=== PATIENT | male | born 1965 | race American Indian/Alaskan Native ===

== ENCOUNTER 2018-06-06 07:17 | Emergency (ER) | payer SELFPAY ==
[2018-06-06] MEDS ORDERED: NACL 0.9% 1000 ML 1,000 ML IV ONE (08:16)
[2018-06-06] MEDS ORDERED: ZOFRAN ONE (09:38)
[2018-06-06] MEDS ORDERED: MORPHINE ONE (09:38)
[2018-06-06] MEDS ORDERED: ZOFRAN IV ONE (09:41)
[2018-06-06] MEDS ORDERED: MORPHINE IV ONE (09:41)
--- NOTE | 2018-06-06 09:46 | Emergency Department Report ---
ED Abdominal Pain HPI - General Chief Complaint: Abdominal Pain Stated Complaint: PAIN Time Seen by Provider: 06/06/18 09:36 Source: patient Mode of arrival: Ambulatory Limitations: Language Barrier - History of Present Illness Initial Comments: Patient is 52 years old male with no significant past medical history. Patient presented to the ER complaining of right upper quadrant pain started this morning. Patient stated that pain associated with his nausea and vomiting. Patient stated that he was diagnosed with cholelithiasis in [place] and the doctor recommended for him to have gallbladder surgery but patient refused. MD Complaint: abdominal pain Location: RUQ Radiation: none Migration to: no migration Quality: sharp Consistency: constant - Related Data Allergies Allergy/AdvReac Type Severity Reaction Status Date / Time No Known Allergies Allergy Verified 06/06/18 09:36 ED Review of Systems ROS: Stated complaint: PAIN Other details as noted in HPI Comment: All other systems reviewed and negative Constitutional: denies: chills, fever Respiratory: denies: cough, orthopnea, shortness of breath, SOB with exertion, SOB at rest, wheezing Cardiovascular: denies: chest pain, palpitations, dyspnea on exertion Gastrointestinal: abdominal pain, nausea, vomiting. denies: diarrhea, constipation, hematemesis, melena, hematochezia Musculoskeletal: denies: back pain Neurological: denies: headache, weakness, numbness, paresthesias, confusion, abnormal gait ED Past Medical Hx - Past Medical History Previous Medical History?: Yes Additional medical history: gallbladder issues - Surgical History Past Surgical History?: No - Social History Smoking Status: Current Every Day Smoker Substance Use Type: None ED Physical Exam - General Limitations: Language Barrier General appearance: alert, in no apparent distress - Head Head exam: Present: atraumatic, normocephalic, normal inspection - Eye Eye exam: Present: normal appearance, PERRL - ENT ENT exam: Present: normal exam, normal orophraynx, mucous membranes moist, normal external ear exam - Neck Neck exam: Present: normal inspection, full ROM. Absent: tenderness, meningismus, lymphadenopathy, thyromegaly - Respiratory Respiratory exam: Present: normal lung sounds bilaterally. Absent: respiratory distress, wheezes, rales, rhonchi, stridor, chest wall tenderness, accessory muscle use, decreased breath sounds, prolonged expiratory - Cardiovascular Cardiovascular Exam: Present: regular rate, normal rhythm, normal heart sounds - GI/Abdominal GI/Abdominal exam: Present: soft, tenderness (right upper quadrant pain), normal bowel sounds. Absent: distended, guarding, rebound, rigid, organomegaly , mass, bruit, pulsatile mass, hernia - Extremities Exam Extremities exam: Present: normal inspection, full ROM, normal capillary refill. Absent: tenderness, pedal edema, joint swelling, calf tenderness - Back Exam Back exam: Present: normal inspection, full ROM. Absent: CVA tenderness (R), CVA tenderness (L), muscle spasm, paraspinal tenderness, vertebral tenderness, rash noted - Neurological Exam Neurological exam: Present: alert, oriented X3, CN II-XII intact, normal gait, reflexes normal - Skin Skin exam: Present: warm, intact, normal color ED Course Vital Signs 06/06/18 06/06/18 06/06/18 08:11 09:31 09:45 Temperature 97.5 F L Pulse Rate 62 64 63 Respiratory 18 18 19 Rate Blood Pressure 129/84 126/83 150/80 O2 Sat by Pulse 98 100 96 Oximetry - Reevaluation(s) Reevaluation #1: 06/06/18 13:14 I discussed the patient with Dr. Lang, Dr. Lang is here in the ER to evaluate the patient. ED Medical Decision Making - Lab Data Result diagrams: 06/06/18 09:32 06/06/18 09:32 - Radiology Data Radiology results: report reviewed Referring Physician: IGOR VANN Patient Name: YENI BRADSHAW Date of : 1965 Sex: Male Report Date: 2018-06-06 Report Status: Finalized Findings [address] [address] Ultrasound Report Signed Patient: YENI BRADSHAW MR#: [id number] : 1965 Acct:[id number] Age/Sex: 52 / M ADM Date: 06/06/18 Loc: ED Attending Dr: Ordering Physician: IGOR VANN Date of Service: 06/06/18 Procedure(s): US abdomen limited Accession Number(s): [id number] cc: IGOR VANN ULTRASOUND ABDOMEN LIMITED: TECHNIQUE: Transabdominal ultrasound with color Doppler interrogation. HISTORY: right upper quadrant abdominal pain. COMPARISON: none. FINDINGS: LIVER: Normal. BILIARY SYSTEM: Multiple shadowing gallstones measuring up to 2 cm are identified in the gallbladder lumen. No abnormal dilatation, wall thickening or surrounding fluid. The CBD measures 5 mm. PANCREAS: Normal. RIGHT KIDNEY: Normal. PROXIMAL AORTA: Normal. ASCITES: None. IMPRESSION: Cholelithiasis. No evidence for acute cholecystitis. Transcribed By: TTR Dictated By: AKHIL SULLIVAN JR, MD Electronically Authenticated By: AKHIL SULLIVAN JR, MD Signed Date/Time: 06/06/181101 DD/ 00 TD/TT: 06/06/181101 - Medical Decision Making Patient was seen and evaluated by Dr. Lang from our surgery department. Dr. Lang stated that patient can be discharged home with Augmentin for 2 weeks and pain medicine. Patient does not want to have any surgery in the [place] and he said he want to have his surgery back home. Critical care attestation.: If time is entered above; I have spent that time in minutes in the direct care of this critically ill patient, excluding procedure time. ED Disposition Clinical Impression: Abdominal pain, Cholelithiasis Disposition: -01 TO HOME OR SELFCARE Is pt being admited?: No Condition: Stable Instructions: Abdominal Pain (ED), Biliary Colic (ED) Referrals: PRIMARY CARE, [Primary Care Provider] - 3-5 Days
[2018-06-06 09:53] LABS: Basophils % (Auto) 0.3 % (0.0-1.8); Eosinophils % (Auto) 0.2 % (0.0-4.3); Hemoglobin 16.5 gm/dl (11.8-15.2); Lymphocytes # (Auto) 1.8 K/mm3 (1.2-5.4); Lymphocytes % (Auto) 11.9 % (13.4-35.0); Mean Corpuscular HGB Conc 34 % (32-34); Mean Corpuscular Hemoglobin 33 pg (28-32); Mean Corpuscular Volume 96 fl (84-94); Monocytes # (Auto) 0.6 K/mm3 (0.0-0.8); Monocytes % (Auto) 4.2 % (0.0-7.3); Platelet Count 214 K/mm3 (140-440); Red Blood Count 5.08 M/mm3 (3.65-5.03); Red Cell Distribution Width 12.5 % (13.2-15.2)
[2018-06-06 10:11] LABS: BUN/Creatinine Ratio 24; Blood Urea Nitrogen 12 mg/dL (9-20); Calcium 9.1 mg/dL (8.4-10.2); Hemolysis Index 97; Lipase 24 units/L (13-60)
[2018-06-06 10:13] LABS: Alanine Aminotransferase 20 units/L (7-56)
[2018-06-06] MEDS ORDERED: SUBLIMAZE IV ONE (10:44)
[2018-06-06] MEDS ORDERED: SUBLIMAZE ONE (10:51)
--- NOTE | 2018-06-06 11:03 | Ultrasound Report ---
ULTRASOUND ABDOMEN LIMITED: TECHNIQUE: Transabdominal ultrasound with color Doppler interrogation. HISTORY: right upper quadrant abdominal pain. COMPARISON: none. FINDINGS: LIVER: Normal. BILIARY SYSTEM: Multiple shadowing gallstones measuring up to 2 cm are identified in the gallbladder lumen. No abnormal dilatation, wall thickening or surrounding fluid. The CBD measures 5 mm. PANCREAS: Normal. RIGHT KIDNEY: Normal. PROXIMAL AORTA: Normal. ASCITES: None. IMPRESSION: Cholelithiasis. No evidence for acute cholecystitis.
[2018-06-06 11:30] VITALS: BP 150/80
[2018-06-06] MEDS ORDERED: ZOSYN/NS 3.375GM/50ML 3.375 GM/50 ML BAG IV SCH (11:37)
[2018-06-06] MEDS ORDERED: ZOSYN/NS 4.5GM/100ML 4.5 GM/100 ML VIAL IV SCH (12:00)
[2018-06-06] MEDS ORDERED: DILAUDID IV ONE (13:43)
--- NOTE | 2018-06-06 17:36 | Consultation ---
History of Present Illness Consult date: 06/06/18 Reason for consult: gallstones Requesting physician: IGOR VANN Chief complaint: abdominal pain - History of present illness History of present illness: 52yo M presented to emergency department with acute onset of abdominal pain. History is obtained via civil service worker (#[id number]) He had the same sort of pain on May 22. He was evaluated in [facility] and recommended to have surgery for his gallbladder. He declined offer. He reports that he has had similar pain but not to the same extent in the past. Denies any fevers or chills. Has had nausea. Currently, after pain meds have been given, he is feeling better. He still does not want surgery. He wants to wait until he was home and then have the surgery. 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 Past History Past Medical History: No medical history Past Surgical History: No surgical history Social history: no significant social history Family history: no significant family history Medications and Allergies Allergies Allergy/AdvReac Type Severity Reaction Status Date / Time No Known Allergies Allergy Verified 06/06/18 09:36 Home Medications Medication Instructions Recorded Confirmed Last Taken Type Amoxicillin/Potassium Clav 1 each PO BID #28 tablet 06/06/18 Unknown Rx [Augmentin 875-125 Tablet] HYDROcodone/APAP 5-325 [[place] 1 each PO Q6HR PRN #14 tablet 06/06/18 Unknown Rx 5/325] Ondansetron [Zofran Odt] 4 mg PO Q8HR PRN #14 tab.rapdis 06/06/18 Unknown Rx Ursodiol (Nf) [Actigall (Nf)] 300 mg PO TID #120 capsule 06/06/18 Unknown Rx Review of Systems - Constitutional no fever, no chills, no sweats, no night sweats, no chronic pain - Cardiovascular no chest pain - Respiratory no cough, no shortness of breath - Gastrointestinal abdominal pain, nausea, no vomiting, no diarrhea, no constipation, no hematemesis, no coffee ground emesis, no BRBPR, no melena, no hematochezia, no loss of appetite - Genitourinary no dysuria - Muskuloskeletal no low back pain - Integumentary no pruritis, no wounds, no jaundice Exam Vital Signs Temp Pulse Resp BP Pulse Ox 97.5 F L 62 18 129/84 98 09/24/18 08:11 06/06/18 08:11 06/06/18 08:11 06/06/18 08:11 06/06/18 08:11 - General physical appearance Positive: no distress, no pain, other (appears healthy.) - Eyes Positive: normal occular movement. Negative: icteric - Respiratory Positive: normal expansion, normal respiratory effort, clear to auscultation - Cardiovascular Rhythm: regular - Abdomen Abdomen: Present: soft, tender (only in the right upper quadrant), masses ( noted in the right upper quadrant). Absent: distended, guarding, rigid, wound, surgical scars - Integumentary no rash, no growths, no abnormal pigmentation - Neurologic Neurologic: alert and oriented to time, place and person, motor strength and sensation are grossly intact - Psychiatric Psychiatric: appropriate mood/affect, intact judgment & insight Results - Labs 06/06/18 09:32 06/06/18 09:32 Abnormal lab results 06/06/18 06/06/18 Range/Units 09:32 09:32 WBC 14.8 H (4.5-11.0) K/mm3 RBC 5.08 H (3.65-5.03) M/mm3 Hgb 16.5 H (11.8-15.2) gm/dl Hct 49.0 H (35.5-45.6) % MCV 96 H (84-94) fl MCH 33 H (28-32) pg RDW 12.5 L (13.2-15.2) % Lymph % (Auto) 11.9 L (13.4-35.0) % Seg Neutrophils % 83.4 H (40.0-70.0) % Seg Neutrophils # 12.4 H (1.8-7.7) K/mm3 Carbon Dioxide 21 L (22-30) mmol/L Creatinine 0.5 L (0.8-1.5) mg/dL Glucose 126 H (75-100) mg/dL Diabetes panel 06/06/18 Range/Units 09:32 Sodium 138 (137-145) mmol/L Potassium 4.5 (3.6-5.0) mmol/L Chloride 104.2 (98-107) mmol/L Carbon Dioxide 21 L (22-30) mmol/L BUN 12 (9-20) mg/dL Creatinine 0.5 L (0.8-1.5) mg/dL Glucose 126 H (75-100) mg/dL Calcium 9.1 (8.4-10.2) mg/dL AST 24 (5-40) units/L ALT 20 (7-56) units/L Alkaline Phosphatase 82 (35-129) units/L Total Protein 7.3 (6.3-8.2) g/dL Albumin 4.0 (3.9-5) g/dL Calcium panel 06/06/18 Range/Units 09:32 Calcium 9.1 (8.4-10.2) mg/dL Albumin 4.0 (3.9-5) g/dL Pituitary panel 06/06/18 Range/Units 09:32 Sodium 138 (137-145) mmol/L Potassium 4.5 (3.6-5.0) mmol/L Chloride 104.2 (98-107) mmol/L Carbon Dioxide 21 L (22-30) mmol/L BUN 12 (9-20) mg/dL Creatinine 0.5 L (0.8-1.5) mg/dL Glucose 126 H (75-100) mg/dL Calcium 9.1 (8.4-10.2) mg/dL Adrenal panel 06/06/18 Range/Units 09:32 Sodium 138 (137-145) mmol/L Potassium 4.5 (3.6-5.0) mmol/L Chloride 104.2 (98-107) mmol/L Carbon Dioxide 21 L (22-30) mmol/L BUN 12 (9-20) mg/dL Creatinine 0.5 L (0.8-1.5) mg/dL Glucose 126 H (75-100) mg/dL Calcium 9.1 (8.4-10.2) mg/dL Total Bilirubin 0.70 (0.1-1.2) mg/dL AST 24 (5-40) units/L ALT 20 (7-56) units/L Alkaline Phosphatase 82 (35-129) units/L Total Protein 7.3 (6.3-8.2) g/dL Albumin 4.0 (3.9-5) g/dL - Imaging US - abdomen: report reviewed, image reviewed Assessment and Plan - Patient Problems (1) Abdominal pain Status: Acute Qualifiers: Abdominal location: right upper quadrant Qualified Code(s): R10.11 - Right upper quadrant pain Plan to address problem: Patient is stable. I think based on his exam, white count and the ultrasound images, I think there is some component of acute exacerbation of chronic cholecystitis. We have offered surgery is optional. He continues to decline. Therefore, we've advised dietary restrictions. I have advised him not to use narcotics while he is driving. 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 We will try Ursodiol and hope that it allows him to get home and get the surgery that he needs. As a precaution, will also play someone Augmentin in case there is some component of acute cholecystitis. However, he does not appear ill. Patient is very appreciative. All questions were answered. Plan was discussed with the ER attending. Time=45min
== END 2018-06-06 15:32 | disposition home or self-care (01) ==
LOC: ED 07:17
DX: K80.20 Calculus of gallbladder without cholecystitis without obstruction (principal); F17.200 Nicotine dependence, unspecified, uncomplicated
CPT/HCPCS: 36415; 76705; 80053; 83690; 85025; 96361; 96365; 96375; 99284; J1170; J2270; J2405; J2543; J3010; J7030